=== PATIENT | female | born 1960 | race Caucasian/White ===

== ENCOUNTER 2022-12-04 16:18 | Inpatient (IN) | payer MEDICAID, OTHER ==
[2022-12-04] MEDS ORDERED: methylPREDNISolone Sodium Succinate 125 MG/2 ML SDV IVPUSH ONE (16:34)
[2022-12-04] MEDS ORDERED: Sodium Chloride 0.9% 10 ML Syringe FLUSH PRN (16:34)
[2022-12-04] MEDS: Albuterol/Ipratropium 3.0-0.5 MG/3 ML Neb Soln NEB SCH ×2 (16:42→16:48)
[2022-12-04 17:18] LABS: BASOPHILS ABSOLUTE AUTO 0.04 K/mm3 (0.01-0.08); BASOPHILS PERCENT AUTO 0.3 % (0.1-1.2); EOSINOPHILS ABSOLUTE AUTO 0.04 K/mm3 (0.04-0.36); EOSINOPHILS PERCENT AUTO 0.3 (0.7-5.8); HEMATOCRIT 38.6 % (34.1-44.9); HEMOGLOBIN 11.9 gm/dl (11.2-15.7); IMMATURE GRAN PERCENT AUTO 0.8 % (<=1.0); LYMPHOCYTES ABSOLUTE AUTO 2.05 K/mm3 (1.18-3.74); MEAN CORPUSCULAR HEMOGLOBIN 27.2 pg (25.6-32.2); MEAN CORPUSCULAR HGB CONC 30.8 g/dl (32.2-35.5); MEAN CORPUSCULAR VOLUME 88.1 fl (79.4-94.8); MEAN PLATELET VOLUME 10.8 fl (9.4-12.3); MONOCYTES ABSOLUTE AUTO 1.63 K/mm3 (0.24-0.36); MONOCYTES PERCENT AUTO 12.7 % (4.7-12.5); NEUTROPHILS ABSOLUTE AUTO 8.95 K/mm3 (1.56-6.13); NEUTROPHILS PERCENT AUTO 69.9 % (34.0-71.1); PLATELET COUNT,PLT 353 K/mm3 (182-369); RED BLOOD CELL COUNT 4.38 M/mm3 (3.98-5.22); WHITE BLOOD CELL COUNT,WBC 12.81 K/mm3 (3.98-10.04)
[2022-12-04 17:38] LABS: LACTIC ACID 0.7 mmol/L (0.4-2.0)
[2022-12-04 17:44] LABS: A/G RATIO 0.9 (1-2); ALBUMIN 3.3 g/dl (3.4-5.0); ANION GAP 11.2 (5-15); BILIRUBIN TOTAL 0.9 mg/dL (0.2-1.0); BUN/CREATININE RATIO 13.6 (14-18); C-REACTIVE PROTEIN 2.1 mg/dL (<1.0); CALCIUM 8.5 mg/dL (8.5-10.1); CREATININE 1.1 mg/dL (0.55-1.02); EST CRCL DRUG DOSING (CG) 40.86 mL/min; POTASSIUM,K 3.2 mEq/L (3.5-5.1)
[2022-12-04] MEDS ORDERED: Potassium Chloride 20 MEQ Tab.ER PO ONE (17:58)
[2022-12-04] MEDS ORDERED: Furosemide 40 MG/4 ML VIAL IVPUSH ONE ×2 (17:59→18:38)
[2022-12-04 18:11] LABS: SLIDE REVIEW ABNORMAL SMEAR
[2022-12-04 18:17] LABS: CORONAVIRUS COVID-19 NAA NEGATIVE (NEGATIVE); INFLUENZA A NAA NEGATIVE (NEGATIVE); RESPIRATORY SYNCYTIAL VIR NAA NEGATIVE (NEGATIVE)
[2022-12-04] MEDS: Potassium Chloride 10 MEQ in Premix Bag 1 BAG IV SCH ×2 (18:50→21:42)
[2022-12-04 19:39] LABS: BASE EXCESS ARTERIAL 3.1 (-2-2.0); BICARBONATE,ARTERIAL 28.6 meq/L (22.0-26.0); O2 SATURATION ARTERIAL 82.8 % (96.0-97.0); PCO2 ARTERIAL 50.2 mmHg (35.0-45.0)
[2022-12-04] MEDS ORDERED: Ondansetron 4 MG Tab.DIS PO PRN (19:55)
[2022-12-04] MEDS ORDERED: Albuterol/Ipratropium 3.0-0.5 MG/3 ML Neb Soln NEB PRN (19:55)
[2022-12-04] MEDS ORDERED: Docusate Sodium 100 MG Cap PO PRN (19:55)
[2022-12-04] MEDS ORDERED: Acetaminophen 325 MG Tab PO PRN (19:55)
[2022-12-04] MEDS ORDERED: Polyethylene Glycol 3350 Powder 17 GM Packet PO PRN (19:55)
[2022-12-04] MEDS ORDERED: Ondansetron 4 MG/2 ML SDV IV PRN (19:55)
[2022-12-04] MEDS ORDERED: Temazepam 7.5 MG Cap PO PRN (19:55)
[2022-12-04] MEDS ORDERED: Azithromycin 250 MG Tab PO ONE (20:30)
[2022-12-04] MEDS: Nystatin Topical Powder 15 GM Bottle TOP SCH (21:43)
[2022-12-04] MEDS ORDERED: Sodium Chloride 0.9% 100 ML ONE (21:57)
[2022-12-04] MEDS ORDERED: Sodium Chloride 0.9% 100 ML IV SCH (22:00)
[2022-12-05] MEDS ORDERED: Furosemide 20 MG/2 ML VIAL IVPUSH SCH (06:00)
[2022-12-05] MEDS: predniSONE 20 MG Tab PO SCH (06:10)
[2022-12-05 06:42] LABS: BASOPHILS ABSOLUTE AUTO 0.01 K/mm3 (0.01-0.08); BASOPHILS PERCENT AUTO 0.1 % (0.1-1.2); EOSINOPHILS PERCENT AUTO 0 (0.7-5.8); HEMATOCRIT 37.8 % (34.1-44.9); HEMOGLOBIN 11.6 gm/dl (11.2-15.7); IMMATURE GRAN ABSOLUTE AUTO 0.06 K/mm3 (0.00-0.10); IMMATURE GRAN PERCENT AUTO 0.5 % (<=1.0); LYMPHOCYTES ABSOLUTE AUTO 1.48 K/mm3 (1.18-3.74); LYMPHOCYTES PERCENT AUTO 13.2 % (19.3-51.7); MEAN CORPUSCULAR HEMOGLOBIN 27.1 pg (25.6-32.2); MEAN CORPUSCULAR HGB CONC 30.7 g/dl (32.2-35.5); MEAN CORPUSCULAR VOLUME 88.3 fl (79.4-94.8); MEAN PLATELET VOLUME 11.1 fl (9.4-12.3); MONOCYTES ABSOLUTE AUTO 1.21 K/mm3 (0.24-0.36); MONOCYTES PERCENT AUTO 10.8 % (4.7-12.5); NEUTROPHILS ABSOLUTE AUTO 8.43 K/mm3 (1.56-6.13); NEUTROPHILS PERCENT AUTO 75.4 % (34.0-71.1); PLATELET COUNT,PLT 342 K/mm3 (182-369); RED BLOOD CELL COUNT 4.28 M/mm3 (3.98-5.22); WHITE BLOOD CELL COUNT,WBC 11.19 K/mm3 (3.98-10.04)
[2022-12-05 06:59] LABS: ANION GAP 10.4 (5-15); CALCIUM 8.8 mg/dL (8.5-10.1); EST CRCL DRUG DOSING (CG) 40.82 mL/min; POTASSIUM,K 3.4 mEq/L (3.5-5.1)
[2022-12-05 07:26] LABS: SLIDE REVIEW ABNORMAL SMEAR
[2022-12-05 08:00] LABS: BICARBONATE,ARTERIAL 32.4 meq/L (22.0-26.0); O2 SATURATION ARTERIAL 91.8 % (96.0-97.0); PCO2 ARTERIAL 51.5 mmHg (35.0-45.0)
[2022-12-05] MEDS: Enoxaparin 40 MG/0.4 ML Syringe SUBCUT SCH (08:04)
[2022-12-05] MEDS: Potassium Chloride 20 MEQ Tab.ER PO SCH ×2 (08:04→22:18)
[2022-12-05] MEDS: Azithromycin 250 MG Tab PO SCH (08:04)
[2022-12-05] MEDS: Nystatin Topical Powder 15 GM Bottle TOP SCH ×2 (08:04→22:15)
[2022-12-05] MEDS: Loperamide 2 MG Cap PO PRN ×2 (08:58→15:48)
[2022-12-05] MEDS: Furosemide 40 MG/4 ML VIAL IVPUSH SCH ×2 (10:31→13:38)
[2022-12-05] MEDS: Fluticasone NASAL Spray 16 GM Bottle NASBOTH SCH (10:31)
[2022-12-05] MEDS ORDERED: LORazepam 1 MG Tab PO PRN (12:39)
[2022-12-05] MEDS ORDERED: Albuterol 6.7 GM Inhaler INH PRN (12:39)
[2022-12-05] MEDS: Formoterol/Mometasone 100-5 MCG 8.8 GM Inhaler IH SCH (20:08)
[2022-12-05] MEDS ORDERED: Non-Formulary Medication 1 Each (Diclofenac Sodium 75 MG Tablet.Dr) PO SCH (21:00)
[2022-12-05] MEDS ORDERED: Lisinopril 20 MG Tab PO SCH (21:00)
[2022-12-05] MEDS ORDERED: Gabapentin 600 MG Tab PO SCH (21:00)
[2022-12-05] MEDS: Verapamil 80 MG Tab PO SCH (21:55)
[2022-12-06] MEDS: Formoterol/Mometasone 100-5 MCG 8.8 GM Inhaler IH SCH (06:16)
[2022-12-06] MEDS: Furosemide 40 MG/4 ML VIAL IVPUSH SCH ×3 (06:58→13:30)
[2022-12-06] MEDS: predniSONE 20 MG Tab PO SCH (07:26)
[2022-12-06] MEDS: Loperamide 2 MG Cap PO PRN (07:26)
[2022-12-06] MEDS: Verapamil 80 MG Tab PO SCH (08:07)
[2022-12-06] MEDS: Potassium Chloride 20 MEQ Tab.ER PO SCH (08:08)
[2022-12-06] MEDS: Azithromycin 250 MG Tab PO SCH (08:09)
[2022-12-06] MEDS: Enoxaparin 40 MG/0.4 ML Syringe SUBCUT SCH (08:10)
[2022-12-06] MEDS: Fluticasone NASAL Spray 16 GM Bottle NASBOTH SCH (08:10)
[2022-12-06] MEDS: Nystatin Topical Powder 15 GM Bottle TOP SCH (08:10)
[2022-12-06] MEDS ORDERED: buPROPion 100 MG Tab.SR PO SCH (09:00)
[2022-12-06] MEDS ORDERED: Sertraline 50 MG Tab PO SCH (09:00)
[2022-12-06] MEDS ORDERED: Atenolol 25 MG Tab PO SCH (09:00)
[2022-12-06] MEDS ORDERED: Celecoxib 100 MG Cap PO SCH (09:00)
== END 2022-12-06 13:57 | disposition home or self-care (01) | DRG 189 ==
LOC: JD.ED 16:18 → JD.MS 18:42 → MERGE 18:42
PROVIDERS: ADMIT Hospitalist; ATTEND Hospitalist
DX: J96.21 Acute and chronic respiratory failure with hypoxia (principal); J44.1 Chronic obstructive pulmonary disease with (acute) exacerbation; Z68.42 Body mass index [BMI] 45.0-49.9, adult; I11.0 Hypertensive heart disease with heart failure; F41.9 Anxiety disorder, unspecified; F32.A Depression, unspecified; Z20.822 Contact with and (suspected) exposure to COVID-19; M17.0 Bilateral primary osteoarthritis of knee; E87.6 Hypokalemia; E66.01 Morbid (severe) obesity due to excess calories; I50.9 Heart failure, unspecified; F17.200 Nicotine dependence, unspecified, uncomplicated; Z79.899 Other long term (current) drug therapy; Z98.890 Other specified postprocedural states; Z71.6 Tobacco abuse counseling
CPT/HCPCS: 0241U; 36415; 36600; 71045; 71045-26; 80048; 80053; 82803; 83605; 83735; 83880; 84484; 85025; 85379; 86140; 93005; 93010; 93306; 94640; 94762; 96374; 96375; 97162-GP; 99222; 99232; 99239; 99284; 99285-25; A9270-GY; J1650; J1940; J2930; J3480; J3490; J7512; J7620-GY

== ENCOUNTER 2022-12-10 07:11 | Emergency (ER) | payer MEDICAID ==
[2022-12-10] MEDS ORDERED: methylPREDNISolone Sodium Succinate 125 MG/2 ML SDV IVPUSH ONE (07:46)
[2022-12-10 07:59] LABS: BASOPHILS ABSOLUTE AUTO 0.05 K/mm3 (0.01-0.08); BASOPHILS PERCENT AUTO 0.2 % (0.1-1.2); EOSINOPHILS ABSOLUTE AUTO 0.13 K/mm3 (0.04-0.36); EOSINOPHILS PERCENT AUTO 0.6 (0.7-5.8); HEMOGLOBIN 13.6 gm/dl (11.2-15.7); IMMATURE GRAN ABSOLUTE AUTO 0.08 K/mm3 (0.00-0.10); IMMATURE GRAN PERCENT AUTO 0.3 % (<=1.0); LYMPHOCYTES ABSOLUTE AUTO 1.71 K/mm3 (1.18-3.74); LYMPHOCYTES PERCENT AUTO 7.3 % (19.3-51.7); MEAN CORPUSCULAR HEMOGLOBIN 26.8 pg (25.6-32.2); MEAN CORPUSCULAR HGB CONC 29.6 g/dl (32.2-35.5); MEAN CORPUSCULAR VOLUME 90.6 fl (79.4-94.8); MONOCYTES ABSOLUTE AUTO 2.07 K/mm3 (0.24-0.36); MONOCYTES PERCENT AUTO 8.8 % (4.7-12.5); NEUTROPHILS PERCENT AUTO 82.8 % (34.0-71.1); PLATELET COUNT,PLT 421 K/mm3 (182-369); RED BLOOD CELL COUNT 5.08 M/mm3 (3.98-5.22); WHITE BLOOD CELL COUNT,WBC 23.44 K/mm3 (3.98-10.04)
[2022-12-10] MEDS ORDERED: Sodium Chloride 0.9% 100 ML IV SCH (08:00)
[2022-12-10] MEDS ORDERED: Sodium Chloride 0.9% 10 ML Syringe FLUSH PRN (08:00)
[2022-12-10] MEDS ORDERED: Iopamidol 755 Mg/ML 100 ML Bottle IVPUSH ONE (08:00)
[2022-12-10 08:08] LABS: A/G RATIO 0.9 (1-2); ALBUMIN 3.5 g/dl (3.4-5.0); ANION GAP 10.8 (5-15); BILIRUBIN TOTAL 0.5 mg/dL (0.2-1.0); BUN/CREATININE RATIO 10.8 (14-18); CALCIUM 8.9 mg/dL (8.5-10.1); CREATININE 1.2 mg/dL (0.55-1.02); EST CRCL DRUG DOSING (CG) 34.02 mL/min; MAGNESIUM 1.8 mg/dL (1.8-2.4); PHOSPHORUS 3.4 mg/dL (2.6-4.7); POTASSIUM,K 3.8 mEq/L (3.5-5.1); PROTEIN TOTAL,TP 7.4 g/dl (6.4-8.2)
[2022-12-10 08:51] LABS: SLIDE REVIEW ABNORMAL SMEAR
[2022-12-10 09:18] LABS: LACTIC ACID 1.6 mmol/L (0.4-2.0)
[2022-12-10 09:37] LABS: BASE EXCESS ARTERIAL 1.8 (-2-2.0); BICARBONATE,ARTERIAL 27.8 meq/L (22.0-26.0); O2 SATURATION ARTERIAL 98.1 % (96.0-97.0); PCO2 ARTERIAL 52.9 mmHg (35.0-45.0)
[2022-12-10] MEDS ORDERED: Piperacillin/Tazobactam 4.5 GM in Sodium Chloride 0.9% 100 ML IV ONE (10:06)
[2022-12-10] MEDS ORDERED: Azithromycin 500 MG in Sodium Chloride 0.9% 250 ML IV ONE (10:06)
[2022-12-10] MEDS ORDERED: Sodium Chloride 0.9% 1,000 ML IV ONE (14:22)
== END 2022-12-10 15:51 ==
LOC: JD.ED 07:11
DX: J96.01 Acute respiratory failure with hypoxia (principal); J18.9 Pneumonia, unspecified organism; E78.00 Pure hypercholesterolemia, unspecified; I10 Essential (primary) hypertension; J44.9 Chronic obstructive pulmonary disease, unspecified; M19.90 Unspecified osteoarthritis, unspecified site; Z86.16 Personal history of COVID-19; Z79.51 Long term (current) use of inhaled steroids; Z79.899 Other long term (current) drug therapy
CPT/HCPCS: 36415; 36600; 71045; 71045-26; 71275; 71275-26; 80053; 82803; 83605; 83690; 83735; 83880; 84100; 84484; 85025; 87040; 93005; 93010; 94660; 96361; 96365; 96367; 96375; 99285; 99285-25; J0456; J2543; J2930; J3490; J7030; J7050; Q9967

== ENCOUNTER 2023-11-05 08:42 | Inpatient (IN) | payer MEDICARE, OTHER ==
[2023-11-05 09:20] LABS: BASOPHILS ABSOLUTE AUTO 0.1 K/mm3 (0.0-0.2); BASOPHILS PERCENT AUTO 0.4 % (0.0-1.0); EOSINOPHILS PERCENT AUTO 0.2 % (0.0-6.0); HEMATOCRIT 35.8 % (37.0-47.0); HEMOGLOBIN 11.3 gm/dl (12.0-16.0); IMMATURE GRAN ABSOLUTE AUTO 0.16 K/mm3 (0.00-0.05); LYMPHOCYTES ABSOLUTE AUTO 0.7 K/mm3 (1.0-4.8); LYMPHOCYTES PERCENT AUTO 4.4 % (24.0-44.0); MEAN CORPUSCULAR HEMOGLOBIN 28.2 pg (28.0-32.0); MEAN CORPUSCULAR HGB CONC 31.6 g/dl (32.0-36.0); MEAN CORPUSCULAR VOLUME 89.3 fl (83.0-99.0); MEAN PLATELET VOLUME 11.6 fl (9.4-12.3); MONOCYTES ABSOLUTE AUTO 0.3 K/mm3 (0.0-0.8); MONOCYTES PERCENT AUTO 1.7 % (0.0-8.0); NEUTROPHILS ABSOLUTE AUTO 15.4 K/mm3 (1.8-7.7); NEUTROPHILS PERCENT AUTO 92.3 % (41.0-71.0); NRBC ABSOLUTE 0.05 (0.00-0.02); NRBC PERCENT 0.3 % (0.0-0.2); PLATELET COUNT,PLT 224 K/mm3 (150-400); RED BLOOD CELL COUNT 4.01 M/mm3 (4.10-5.30); WHITE BLOOD CELL COUNT,WBC 16.66 K/mm3 (3.9-11.3)
[2023-11-05 09:43] LABS: ALBUMIN 3.3 g/dl (3.4-5.0); ANION GAP 13.4 (5-15); BILIRUBIN TOTAL 1.1 mg/dL (0.2-1.0); BUN/CREATININE RATIO 12.5 (14-18); CALCIUM 8.6 mg/dL (8.5-10.1); CREATININE 1.6 mg/dL (0.55-1.02); EST CRCL DRUG DOSING (CG) 25.18 mL/min; POTASSIUM,K 3.4 mEq/L (3.5-5.1); PROTEIN TOTAL,TP 6.7 g/dl (6.4-8.2)
[2023-11-05] MEDS: Sodium Chloride 0.9% 1,000 ML IV ONE (10:26)
[2023-11-05 10:32] LABS: LACTIC ACID 3.1 mmol/L (0.4-2.0)
[2023-11-05 10:38] LABS: SLIDE REVIEW ABNORMAL SMEAR
[2023-11-05] MEDS: cefTRIAXone 1 GM in Sodium Chloride 0.9% 100 ML IV ONE (11:01)
[2023-11-05] MEDS: Azithromycin 500 MG in Sodium Chloride 0.9% 250 ML IV ONE (11:53)
[2023-11-05] MEDS: Albuterol/Ipratropium 3.0-0.5 MG/3 ML Neb Soln ONE (12:57)
[2023-11-05] MEDS ORDERED: Morphine 2 MG/ML SYRINGE IVPUSH PRN (13:40)
[2023-11-05] MEDS ORDERED: Acetaminophen/oxyCODONE 325-5 MG Tab PO PRN (13:40)
[2023-11-05] MEDS ORDERED: Ondansetron 4 MG Tab.DIS PO PRN (13:40)
[2023-11-05] MEDS ORDERED: Albuterol 0.083% 2.5 MG/3 ML Neb Soln NEB PRN (13:40)
[2023-11-05] MEDS ORDERED: Sennosides/Docusate Sodium 50-8.6 MG Tab PO PRN (13:40)
[2023-11-05] MEDS: Albuterol/Ipratropium 3.0-0.5 MG/3 ML Neb Soln NEB ONE (14:16)
[2023-11-05] MEDS: Acetaminophen 325 MG Tab PO PRN (14:29)
[2023-11-05] MEDS: Heparin Sodium 5,000 Units/ML Vial SUBCUT SCH (14:30)
[2023-11-05] MEDS: methylPREDNISolone Sodium Succinate 40 MG/1 ML SDV IVPUSH SCH (14:30)
[2023-11-05] MEDS ORDERED: Benzonatate 100 MG Cap PO PRN (14:44)
[2023-11-05 15:03] LABS: MAGNESIUM 1.3 mg/dL (1.8-2.4); PHOSPHORUS 2.3 mg/dL (2.6-4.7)
[2023-11-05 15:10] LABS: TSH 0.982 uIU/mL (0.358-3.74)
[2023-11-05] MEDS: Albuterol/Ipratropium 3.0-0.5 MG/3 ML Neb Soln NEB SCH (15:46)
[2023-11-05 17:13] LABS: LACTIC ACID 5.2 mmol/L (0.4-2.0)
[2023-11-05] MEDS: Zolpidem 5 MG Tab PO PRN (21:10)
[2023-11-05] MEDS: Loperamide 2 MG Cap PO PRN (21:10)
[2023-11-05] MEDS: guaiFENesin 600 MG Tab.ER PO SCH (21:10)
[2023-11-05] MEDS: Furosemide 20 MG/2 ML VIAL IVPUSH SCH (22:51)
[2023-11-06 05:06] LABS: HEMATOCRIT 29.9 % (37.0-47.0); HEMOGLOBIN 9.3 gm/dl (12.0-16.0); MEAN CORPUSCULAR HEMOGLOBIN 27.1 pg (28.0-32.0); MEAN CORPUSCULAR HGB CONC 31.1 g/dl (32.0-36.0); MEAN CORPUSCULAR VOLUME 87.2 fl (83.0-99.0); PLATELET COUNT,PLT 180 K/mm3 (150-400); RED BLOOD CELL COUNT 3.43 M/mm3 (4.10-5.30); WHITE BLOOD CELL COUNT,WBC 31.88 K/mm3 (3.9-11.3)
[2023-11-06 05:43] LABS: ANION GAP 13.5 (5-15); BUN/CREATININE RATIO 17.1 (14-18); CALCIUM 8.8 mg/dL (8.5-10.1); CREATININE 1.4 mg/dL (0.55-1.02); EST CRCL DRUG DOSING (CG) 28.78 mL/min; POTASSIUM,K 3.5 mEq/L (3.5-5.1)
[2023-11-06] MEDS: Meropenem 500 MG in Sodium Chloride 0.9% 100 ML IV SCH (09:46)
[2023-11-06] MEDS ORDERED: cefTRIAXone 1 GM in Sodium Chloride 0.9% 100 ML IV SCH (11:00)
[2023-11-06] MEDS ORDERED: Azithromycin 500 MG in Sodium Chloride 0.9% 250 ML IV SCH (12:00)
[2023-11-06] MEDS: Phosphorus #1 250 MG Tab PO SCH (17:14)
[2023-11-06] MEDS: Magnesium Oxide 400 MG Tab PO SCH (20:28)
[2023-11-06] MEDS: LORazepam 1 MG Tab PO SCH (20:30)
[2023-11-07 05:47] LABS: HEMATOCRIT 29.8 % (37.0-47.0); HEMOGLOBIN 9.6 gm/dl (12.0-16.0); MEAN CORPUSCULAR HEMOGLOBIN 27.6 pg (28.0-32.0); MEAN CORPUSCULAR HGB CONC 32.2 g/dl (32.0-36.0); MEAN CORPUSCULAR VOLUME 85.6 fl (83.0-99.0); PLATELET COUNT,PLT 197 K/mm3 (150-400); RED BLOOD CELL COUNT 3.48 M/mm3 (4.10-5.30); WHITE BLOOD CELL COUNT,WBC 23.19 K/mm3 (3.9-11.3)
[2023-11-07 05:49] LABS: ANION GAP 12.3 (5-15); BUN/CREATININE RATIO 22.1 (14-18); CALCIUM 8.7 mg/dL (8.5-10.1); CREATININE 1.4 mg/dL (0.55-1.02); EST CRCL DRUG DOSING (CG) 28.78 mL/min; POTASSIUM,K 3.3 mEq/L (3.5-5.1)
[2023-11-07 10:55] LABS: MAGNESIUM 1.6 mg/dL (1.8-2.4); PHOSPHORUS 3.7 mg/dL (2.6-4.7)
[2023-11-07 11:28] LABS: LACTIC ACID 0.7 mmol/L (0.4-2.0)
[2023-11-07] MEDS: Sertraline 50 MG Tab PO SCH (13:22)
[2023-11-07] MEDS: buPROPion 100 MG Tab.SR PO SCH (13:23)
[2023-11-07] MEDS: Atenolol 25 MG Tab PO SCH (13:23)
[2023-11-07] MEDS: Potassium Chloride 20 MEQ Tab.ER PO SCH (13:23)
[2023-11-07] MEDS: RAMIPRIL 10 MG PO SCH (14:24)
[2023-11-07] MEDS: Verapamil 80 MG Tab PO SCH (20:25)
[2023-11-07] MEDS: Rosuvastatin 10 MG Tab PO SCH (20:26)
[2023-11-07] MEDS: DICLOFENAC 75 MG PO SCH (20:27)
[2023-11-08 05:37] LABS: ANION GAP 14.3 (5-15); BUN/CREATININE RATIO 27.9 (14-18); CALCIUM 8.6 mg/dL (8.5-10.1); CREATININE 1.4 mg/dL (0.55-1.02); EST CRCL DRUG DOSING (CG) 28.78 mL/min; POTASSIUM,K 3.3 mEq/L (3.5-5.1)
[2023-11-08 05:46] LABS: HEMATOCRIT 31.4 % (37.0-47.0); HEMOGLOBIN 9.9 gm/dl (12.0-16.0); MEAN CORPUSCULAR HEMOGLOBIN 27.3 pg (28.0-32.0); MEAN CORPUSCULAR HGB CONC 31.5 g/dl (32.0-36.0); MEAN CORPUSCULAR VOLUME 86.7 fl (83.0-99.0); NRBC ABSOLUTE 0.02 (0.00-0.02); NRBC PERCENT 0.1 % (0.0-0.2); PLATELET COUNT,PLT 227 K/mm3 (150-400); RED BLOOD CELL COUNT 3.62 M/mm3 (4.10-5.30); WHITE BLOOD CELL COUNT,WBC 14.83 K/mm3 (3.9-11.3)
[2023-11-08] MEDS: methylPREDNISolone Sodium Succinate 40 MG/1 ML SDV IVPUSH SCH (17:33)
[2023-11-08] MEDS: LORazepam 1 MG Tab PO SCH (21:08)
[2023-11-09 05:39] LABS: HEMATOCRIT 32.6 % (37.0-47.0); HEMOGLOBIN 10.2 gm/dl (12.0-16.0); MEAN CORPUSCULAR HEMOGLOBIN 27.1 pg (28.0-32.0); MEAN CORPUSCULAR HGB CONC 31.3 g/dl (32.0-36.0); MEAN CORPUSCULAR VOLUME 86.5 fl (83.0-99.0); MEAN PLATELET VOLUME 13.4 fl (9.4-12.3); NRBC ABSOLUTE 0.02 (0.00-0.02); NRBC PERCENT 0.2 % (0.0-0.2); PLATELET COUNT,PLT 257 K/mm3 (150-400); RED BLOOD CELL COUNT 3.77 M/mm3 (4.10-5.30); WHITE BLOOD CELL COUNT,WBC 13.01 K/mm3 (3.9-11.3)
[2023-11-09 05:55] LABS: ANION GAP 12.4 (5-15); BUN/CREATININE RATIO 26.9 (14-18); CALCIUM 8.6 mg/dL (8.5-10.1); CREATININE 1.3 mg/dL (0.55-1.02); EST CRCL DRUG DOSING (CG) 30.99 mL/min; POTASSIUM,K 3.4 mEq/L (3.5-5.1)
[2023-11-09] MEDS ORDERED: Furosemide 20 MG Tab PO SCH (09:00)
[2023-11-09] MEDS: methylPREDNISolone Sodium Succinate 40 MG/1 ML SDV IVPUSH SCH (09:05)
[2023-11-09] MEDS: Furosemide 20 MG Tab PO SCH (09:06)
[2023-11-09] MEDS: Loperamide 2 MG Cap PO PRN (11:41)
[2023-11-09] MEDS ORDERED: diphenhydrAMINE/Zinc Acetate 2% Crm 28.4 GM Tube TOP PRN (14:32)
[2023-11-09] MEDS: hydrOXYzine HCl 10 MG Tab PO PRN (14:45)
[2023-11-09] MEDS: Meropenem 1 GM in Sodium Chloride 0.9% 100 ML IV SCH (23:13)
[2023-11-10 04:53] LABS: HEMATOCRIT 33.3 % (37.0-47.0); HEMOGLOBIN 10.5 gm/dl (12.0-16.0); MEAN CORPUSCULAR HEMOGLOBIN 26.9 pg (28.0-32.0); MEAN CORPUSCULAR HGB CONC 31.5 g/dl (32.0-36.0); MEAN CORPUSCULAR VOLUME 85.2 fl (83.0-99.0); MEAN PLATELET VOLUME 12.7 fl (9.4-12.3); NRBC ABSOLUTE 0.02 (0.00-0.02); NRBC PERCENT 0.1 % (0.0-0.2); PLATELET COUNT,PLT 253 K/mm3 (150-400); RED BLOOD CELL COUNT 3.91 M/mm3 (4.10-5.30); WHITE BLOOD CELL COUNT,WBC 18.43 K/mm3 (3.9-11.3)
[2023-11-10 05:06] LABS: ANION GAP 13.5 (5-15); CALCIUM 8.2 mg/dL (8.5-10.1); CREATININE 1.4 mg/dL (0.55-1.02); EST CRCL DRUG DOSING (CG) 28.78 mL/min; MAGNESIUM 2.2 mg/dL (1.8-2.4); POTASSIUM,K 3.5 mEq/L (3.5-5.1)
[2023-11-10] MEDS: predniSONE 20 MG Tab PO SCH (06:15)
[2023-11-10] MEDS: Furosemide 40 MG Tab PO SCH (08:51)
== END 2023-11-10 11:55 | disposition home or self-care (01) | DRG 177 ==
LOC: JD.ED 08:42 → JD.MS 12:02
PROVIDERS: ADMIT Internal Medicine; ATTEND Internal Medicine
DX: J18.9 Pneumonia, unspecified organism (principal); R09.02 Hypoxemia; I50.9 Heart failure, unspecified; I10 Essential (primary) hypertension; J44.9 Chronic obstructive pulmonary disease, unspecified; J15.5 Pneumonia due to Escherichia coli; I50.43 Acute on chronic combined systolic (congestive) and diastolic (congestive) heart failure; J96.21 Acute and chronic respiratory failure with hypoxia; J44.0 Chronic obstructive pulmonary disease with (acute) lower respiratory infection; N17.9 Acute kidney failure, unspecified; K92.1 Melena; J44.1 Chronic obstructive pulmonary disease with (acute) exacerbation; Z16.29 Resistance to other single specified antibiotic; R78.81 Bacteremia; H54.7 Unspecified visual loss; E78.00 Pure hypercholesterolemia, unspecified; I11.0 Hypertensive heart disease with heart failure; M19.90 Unspecified osteoarthritis, unspecified site; F41.9 Anxiety disorder, unspecified; F32.A Depression, unspecified; E87.6 Hypokalemia; Z86.16 Personal history of COVID-19; Z79.899 Other long term (current) drug therapy; Z99.81 Dependence on supplemental oxygen; Z87.891 Personal history of nicotine dependence; Z98.891 History of uterine scar from previous surgery
CPT/HCPCS: 36415; 71045; 80053; 83605; 83880; 84484; 85025; 87040 ×2; 87077; 87154; 87186; 93005; 96361; 96365; 96368; 99285; J0456; J0696; J3490; J7030; J7050; 80048; 82270; 82272; 83735; 84100; 84443; 85018; 85027; 93010; 93306; 94640; 94667; 94668; 94760; 94761; A9270-GY; J1644; J1940; J2185; J2919; J2920; J7512; J7620-GY

== ENCOUNTER 2024-01-22 15:53 | Inpatient (IN) | payer MEDICARE, OTHER ==
[2024-01-22 16:11] LABS: BASE EXCESS ARTERIAL 5.3 (-2-2.0); BICARBONATE,ARTERIAL 30.8 meq/L (22.0-26.0); O2 SATURATION ARTERIAL 90.3 % (96.0-97.0)
[2024-01-22 16:32] LABS: BASOPHILS ABSOLUTE AUTO 0.1 K/mm3 (0.0-0.2); BASOPHILS PERCENT AUTO 0.8 % (0.0-1.0); HEMATOCRIT 32.7 % (37.0-47.0); HEMOGLOBIN 9.7 gm/dl (12.0-16.0); IMMATURE GRAN ABSOLUTE AUTO 0.14 K/mm3 (0.00-0.05); IMMATURE GRAN PERCENT AUTO 1.4 % (0.0-0.4); LYMPHOCYTES PERCENT AUTO 30.8 % (24.0-44.0); MEAN CORPUSCULAR HEMOGLOBIN 26.9 pg (28.0-32.0); MEAN CORPUSCULAR HGB CONC 29.7 g/dl (32.0-36.0); MEAN CORPUSCULAR VOLUME 90.8 fl (83.0-99.0); MEAN PLATELET VOLUME 11.5 fl (9.4-12.3); MONOCYTES ABSOLUTE AUTO 1.4 K/mm3 (0.0-0.8); MONOCYTES PERCENT AUTO 13.8 % (0.0-8.0); NEUTROPHILS ABSOLUTE AUTO 5.3 K/mm3 (1.8-7.7); NEUTROPHILS PERCENT AUTO 53.2 % (41.0-71.0); PLATELET COUNT,PLT 318 K/mm3 (150-400); WHITE BLOOD CELL COUNT,WBC 9.88 K/mm3 (3.9-11.3)
[2024-01-22] MEDS: Albuterol 0.5% 2.5 MG/0.5 ML Neb Soln NEB ONE (16:33)
[2024-01-22] MEDS: Albuterol/Ipratropium 3.0-0.5 MG/3 ML Neb Soln NEB ONE (16:43)
[2024-01-22 16:59] LABS: A/G RATIO 0.8 (1-2); ALBUMIN 2.8 g/dl (3.4-5.0); ANION GAP 10.6 (5-15); BILIRUBIN TOTAL 0.4 mg/dL (0.2-1.0); C-REACTIVE PROTEIN 2.44 mg/dL (<0.30); CALCIUM 8.6 mg/dL (8.5-10.1); CREATININE 1.4 mg/dL (0.55-1.02); EST CRCL DRUG DOSING (CG) 28.78 mL/min; MAGNESIUM 1.8 mg/dL (1.8-2.4); POTASSIUM,K 3.6 mEq/L (3.5-5.1); PROTEIN TOTAL,TP 6.4 g/dl (6.4-8.2)
[2024-01-22] MEDS: Sodium Chloride 0.9% 1,000 ML IV SCH (17:14)
[2024-01-22] MEDS: methylPREDNISolone Sodium Succinate 125 MG/2 ML SDV IVPUSH ONE (17:15)
[2024-01-22] MEDS: Magnesium Sulfate/Water 4 GM in Premix Bag 1 BAG IV ONE (17:15)
[2024-01-22 19:27] LABS: CORONAVIRUS COVID-19 NAA NEGATIVE (NEGATIVE); INFLUENZA A NAA NEGATIVE (NEGATIVE); RESPIRATORY SYNCYTIAL VIR NAA NEGATIVE (NEGATIVE)
[2024-01-22] MEDS: Furosemide 40 MG/4 ML VIAL IVPUSH ONE (21:24)
[2024-01-22] MEDS: Albuterol/Ipratropium 3.0-0.5 MG/3 ML Neb Soln NEB SCH (22:38)
[2024-01-22 22:44] LABS: APPEARANCE,URINE CLEAR (Clear); BILIRUBIN,URINE NEGATIVE (Negative); COLOR,URINE YELLOW (Yellow); GLUCOSE,URINE NEGATIVE (Negative); KETONES,URINE NEGATIVE (Negative); LEUKOCYTE ESTERASE,URINE NEGATIVE (Negative); NITRITE,URINE NEGATIVE (Negative); OCCULT BLOOD,URINE NEGATIVE (Negative); PROTEIN,URINE NEGATIVE (Negative); UROBILINOGEN,URINE 0.2 (0.2-1.0)
[2024-01-23] MEDS ORDERED: Ondansetron 4 MG/2 ML SDV IV PRN (05:52)
[2024-01-23] MEDS: Doxycycline 100 MG in Sodium Chloride 0.9% 100 ML IV SCH (07:03)
[2024-01-23] MEDS: Loperamide 2 MG Cap PO SCH (08:17)
[2024-01-23] MEDS: Sertraline 50 MG Tab PO SCH (08:17)
[2024-01-23] MEDS: methylPREDNISolone Sodium Succinate 125 MG/2 ML SDV IVPUSH SCH (08:17)
[2024-01-23] MEDS: Enoxaparin 40 MG/0.4 ML Syringe SUBCUT SCH (08:17)
[2024-01-23] MEDS: buPROPion 100 MG Tab.SR PO SCH (08:17)
[2024-01-23] MEDS: Atenolol 25 MG Tab PO SCH (08:18)
[2024-01-23] MEDS: Verapamil 80 MG Tab PO SCH (08:18)
[2024-01-23] MEDS: Budesonide 0.5 MG/2 ML Neb Susp INH SCH (14:07)
[2024-01-23] MEDS: Potassium Chloride 20 MEQ Tab.ER PO ONE (14:40)
[2024-01-23] MEDS: Acetaminophen 325 MG Tab PO PRN (19:35)
[2024-01-23] MEDS: Gabapentin 300 MG Cap PO SCH (21:03)
[2024-01-23] MEDS: Sulindac 200 MG Tab PO SCH (21:03)
[2024-01-23] MEDS: Rosuvastatin 10 MG Tab PO SCH (21:04)
[2024-01-23] MEDS: LORazepam 1 MG Tab PO PRN (22:23)
[2024-01-23] MEDS ORDERED: Loperamide 2 MG Cap PO PRN (22:27)
[2024-01-24 05:39] LABS: HEMATOCRIT 30.4 % (37.0-47.0); HEMOGLOBIN 9.2 gm/dl (12.0-16.0); MEAN CORPUSCULAR HEMOGLOBIN 26.7 pg (28.0-32.0); MEAN CORPUSCULAR HGB CONC 30.3 g/dl (32.0-36.0); MEAN CORPUSCULAR VOLUME 88.1 fl (83.0-99.0); MEAN PLATELET VOLUME 10.9 fl (9.4-12.3); NRBC ABSOLUTE 0.03 (0.00-0.02); NRBC PERCENT 0.2 % (0.0-0.2); PLATELET COUNT,PLT 335 K/mm3 (150-400); RED BLOOD CELL COUNT 3.45 M/mm3 (4.10-5.30); WHITE BLOOD CELL COUNT,WBC 15.62 K/mm3 (3.9-11.3)
[2024-01-24 06:07] LABS: ALBUMIN 3.2 g/dl (3.4-5.0); ANION GAP 11.3 (5-15); BILIRUBIN TOTAL 0.3 mg/dL (0.2-1.0); BUN/CREATININE RATIO 21.4 (14-18); CALCIUM 9.2 mg/dL (8.5-10.1); CREATININE 1.4 mg/dL (0.55-1.02); EST CRCL DRUG DOSING (CG) 28.78 mL/min; MAGNESIUM 2.3 mg/dL (1.8-2.4); PHOSPHORUS 3.4 mg/dL (2.6-4.7); POTASSIUM,K 4.3 mEq/L (3.5-5.1); PROTEIN TOTAL,TP 6.4 g/dl (6.4-8.2)
[2024-01-24] MEDS: Loperamide 2 MG Cap PO PRN (07:39)
[2024-01-24] MEDS ORDERED: Melatonin 3 MG Tab PO PRN (08:24)
[2024-01-24] MEDS: Furosemide 40 MG/4 ML VIAL IVPUSH ONE (08:44)
[2024-01-24] MEDS ORDERED: Sennosides/Docusate Sodium 50-8.6 MG Tab PO PRN (08:49)
[2024-01-24] MEDS: Famotidine 20 MG Tab PO SCH (22:04)
[2024-01-25 05:33] LABS: BASOPHILS PERCENT AUTO 0.2 % (0.0-1.0); HEMATOCRIT 31.6 % (37.0-47.0); HEMOGLOBIN 9.7 gm/dl (12.0-16.0); IMMATURE GRAN ABSOLUTE AUTO 0.28 K/mm3 (0.00-0.05); IMMATURE GRAN PERCENT AUTO 2.1 % (0.0-0.4); LYMPHOCYTES ABSOLUTE AUTO 2.9 K/mm3 (1.0-4.8); LYMPHOCYTES PERCENT AUTO 21.6 % (24.0-44.0); MEAN CORPUSCULAR HEMOGLOBIN 26.9 pg (28.0-32.0); MEAN CORPUSCULAR HGB CONC 30.7 g/dl (32.0-36.0); MEAN CORPUSCULAR VOLUME 87.5 fl (83.0-99.0); MEAN PLATELET VOLUME 11.5 fl (9.4-12.3); MONOCYTES ABSOLUTE AUTO 1.8 K/mm3 (0.0-0.8); MONOCYTES PERCENT AUTO 13.3 % (0.0-8.0); NEUTROPHILS ABSOLUTE AUTO 8.5 K/mm3 (1.8-7.7); NEUTROPHILS PERCENT AUTO 62.8 % (41.0-71.0); NRBC ABSOLUTE 0.03 (0.00-0.02); NRBC PERCENT 0.2 % (0.0-0.2); PLATELET COUNT,PLT 353 K/mm3 (150-400); RED BLOOD CELL COUNT 3.61 M/mm3 (4.10-5.30); WHITE BLOOD CELL COUNT,WBC 13.53 K/mm3 (3.9-11.3)
[2024-01-25 05:52] LABS: ANION GAP 10.1 (5-15); BUN/CREATININE RATIO 23.3 (14-18); C-REACTIVE PROTEIN 0.36 mg/dL (<0.30); CALCIUM 8.8 mg/dL (8.5-10.1); CREATININE 1.5 mg/dL (0.55-1.02); EST CRCL DRUG DOSING (CG) 26.86 mL/min; POTASSIUM,K 4.1 mEq/L (3.5-5.1)
[2024-01-25 06:23] LABS: SLIDE REVIEW ABNORMAL SMEAR
[2024-01-25] MEDS: methylPREDNISolone Sodium Succinate 40 MG/1 ML SDV IVPUSH SCH (08:20)
[2024-01-25] MEDS: Furosemide 40 MG/4 ML VIAL IVPUSH ONE (11:16)
[2024-01-25] MEDS ORDERED: Labetalol 100 MG/20 ML MDV IVPUSH PRN (15:31)
[2024-01-25 17:58] LABS: IRON,FE 22 ug/dL (50-170)
[2024-01-25 18:16] LABS: PERCENT FE SATURATION 6 % (20-55)
[2024-01-25 18:27] LABS: TOTAL IRON BINDING CAPACITY 368 ug/dL (100-400); TRANSFERRIN 294 mg/dL (202-364)
[2024-01-25] MEDS: Nystatin Topical Powder 15 GM Bottle TOP SCH (21:01)
[2024-01-26 04:57] LABS: HEMATOCRIT 34.6 % (37.0-47.0); HEMOGLOBIN 10.6 gm/dl (12.0-16.0); MEAN CORPUSCULAR HEMOGLOBIN 26.8 pg (28.0-32.0); MEAN CORPUSCULAR HGB CONC 30.6 g/dl (32.0-36.0); MEAN CORPUSCULAR VOLUME 87.6 fl (83.0-99.0); MEAN PLATELET VOLUME 11.1 fl (9.4-12.3); NRBC ABSOLUTE 0.02 (0.00-0.02); NRBC PERCENT 0.2 % (0.0-0.2); PLATELET COUNT,PLT 362 K/mm3 (150-400); RED BLOOD CELL COUNT 3.95 M/mm3 (4.10-5.30); WHITE BLOOD CELL COUNT,WBC 11.27 K/mm3 (3.9-11.3)
[2024-01-26 05:12] LABS: CALCIUM 8.7 mg/dL (8.5-10.1); CREATININE 1.5 mg/dL (0.55-1.02); EST CRCL DRUG DOSING (CG) 26.86 mL/min
[2024-01-27] MEDS: hydrALAZINE 20 MG/ML SDV IVPUSH PRN (04:12)
[2024-01-27] MEDS: Furosemide 40 MG Tab PO SCH (08:14)
[2024-01-27 08:21] LABS: ANION GAP 13.3 (5-15); BUN/CREATININE RATIO 28.3 (14-18); CALCIUM 8.5 mg/dL (8.5-10.1); CREATININE 1.2 mg/dL (0.55-1.02); EST CRCL DRUG DOSING (CG) 33.57 mL/min; POTASSIUM,K 4.3 mEq/L (3.5-5.1)
[2024-01-27 08:31] LABS: BASOPHILS PERCENT AUTO 0.3 % (0.0-1.0); HEMATOCRIT 33.8 % (37.0-47.0); HEMOGLOBIN 10.3 gm/dl (12.0-16.0); IMMATURE GRAN ABSOLUTE AUTO 0.51 K/mm3 (0.00-0.05); IMMATURE GRAN PERCENT AUTO 3.8 % (0.0-0.4); LYMPHOCYTES ABSOLUTE AUTO 2.1 K/mm3 (1.0-4.8); LYMPHOCYTES PERCENT AUTO 15.4 % (24.0-44.0); MEAN CORPUSCULAR HEMOGLOBIN 26.7 pg (28.0-32.0); MEAN CORPUSCULAR HGB CONC 30.5 g/dl (32.0-36.0); MEAN CORPUSCULAR VOLUME 87.6 fl (83.0-99.0); MEAN PLATELET VOLUME 11.4 fl (9.4-12.3); MONOCYTES ABSOLUTE AUTO 1.1 K/mm3 (0.0-0.8); MONOCYTES PERCENT AUTO 8.5 % (0.0-8.0); NEUTROPHILS ABSOLUTE AUTO 9.6 K/mm3 (1.8-7.7); NRBC ABSOLUTE 0.03 (0.00-0.02); NRBC PERCENT 0.2 % (0.0-0.2); PLATELET COUNT,PLT 342 K/mm3 (150-400); RED BLOOD CELL COUNT 3.86 M/mm3 (4.10-5.30); WHITE BLOOD CELL COUNT,WBC 13.31 K/mm3 (3.9-11.3)
[2024-01-27 10:16] LABS: SLIDE REVIEW ABNORMAL SMEAR
[2024-01-27] MEDS: Furosemide 40 MG Tab PO ONE (17:57)
[2024-01-27] MEDS: Lisinopril 20 MG Tab PO SCH (20:40)
[2024-01-28 04:52] LABS: BASOPHILS ABSOLUTE AUTO 0.1 K/mm3 (0.0-0.2); BASOPHILS PERCENT AUTO 0.4 % (0.0-1.0); HEMATOCRIT 34.2 % (37.0-47.0); HEMOGLOBIN 10.6 gm/dl (12.0-16.0); IMMATURE GRAN ABSOLUTE AUTO 0.51 K/mm3 (0.00-0.05); IMMATURE GRAN PERCENT AUTO 3.8 % (0.0-0.4); LYMPHOCYTES ABSOLUTE AUTO 1.8 K/mm3 (1.0-4.8); LYMPHOCYTES PERCENT AUTO 13.5 % (24.0-44.0); MEAN CORPUSCULAR HEMOGLOBIN 26.8 pg (28.0-32.0); MEAN CORPUSCULAR VOLUME 86.6 fl (83.0-99.0); MEAN PLATELET VOLUME 11.2 fl (9.4-12.3); MONOCYTES ABSOLUTE AUTO 1.1 K/mm3 (0.0-0.8); MONOCYTES PERCENT AUTO 8.1 % (0.0-8.0); NEUTROPHILS ABSOLUTE AUTO 9.9 K/mm3 (1.8-7.7); NEUTROPHILS PERCENT AUTO 74.2 % (41.0-71.0); NRBC ABSOLUTE 0.04 (0.00-0.02); NRBC PERCENT 0.3 % (0.0-0.2); PLATELET COUNT,PLT 340 K/mm3 (150-400); RED BLOOD CELL COUNT 3.95 M/mm3 (4.10-5.30); WHITE BLOOD CELL COUNT,WBC 13.36 K/mm3 (3.9-11.3)
[2024-01-28 05:38] LABS: BUN/CREATININE RATIO 26.7 (14-18); CALCIUM 8.6 mg/dL (8.5-10.1); CREATININE 1.5 mg/dL (0.55-1.02); EST CRCL DRUG DOSING (CG) 26.86 mL/min
[2024-01-28 06:06] LABS: SLIDE REVIEW ABNORMAL SMEAR
== END 2024-01-28 14:40 | disposition home or self-care (01) | DRG 291 ==
LOC: JD.ED 15:53 → JD.MS 20:42
PROVIDERS: ADMIT Internal Medicine; ATTEND Internal Medicine
PROC: 5A0955A Assistance with Respiratory Ventilation, Greater than 96 Consecutive Hours, High Flow/Velocity Cannula (ICD-10-PCS; principal; 2024-01-22)
PROC: 4A033R1 Measurement of Arterial Saturation, Peripheral, Percutaneous Approach (ICD-10-PCS; 2024-01-22)
DX: I13.0 Hypertensive heart and chronic kidney disease with heart failure and stage 1 through stage 4 chronic kidney disease, or unspecified chronic kidney disease (principal); I11.0 Hypertensive heart disease with heart failure; I50.43 Acute on chronic combined systolic (congestive) and diastolic (congestive) heart failure; E66.9 Obesity, unspecified; Z68.44 Body mass index [BMI] 60.0-69.9, adult; J96.21 Acute and chronic respiratory failure with hypoxia; J96.22 Acute and chronic respiratory failure with hypercapnia; J44.1 Chronic obstructive pulmonary disease with (acute) exacerbation; Z68.43 Body mass index [BMI] 50.0-59.9, adult; N17.9 Acute kidney failure, unspecified; H54.7 Unspecified visual loss; E66.01 Morbid (severe) obesity due to excess calories; E78.00 Pure hypercholesterolemia, unspecified; K52.9 Noninfective gastroenteritis and colitis, unspecified; M19.90 Unspecified osteoarthritis, unspecified site; F41.9 Anxiety disorder, unspecified; F32.A Depression, unspecified; G43.909 Migraine, unspecified, not intractable, without status migrainosus; D50.8 Other iron deficiency anemias; D63.1 Anemia in chronic kidney disease; R73.03 Prediabetes; N18.32 Chronic kidney disease, stage 3b; I27.20 Pulmonary hypertension, unspecified; Z87.891 Personal history of nicotine dependence; Z99.81 Dependence on supplemental oxygen; Z79.51 Long term (current) use of inhaled steroids; Z79.899 Other long term (current) drug therapy; Z98.891 History of uterine scar from previous surgery; Z87.01 Personal history of pneumonia (recurrent)
CPT/HCPCS: 0241U; 36415; 36600; 71045; 80048; 80053; 81003; 82803; 83036; 83540; 83605; 83735; 83880; 84100; 84466; 84484; 85025; 85027; 85379; 86140; 93005; 94640; 94762; 96365; 96366; 96375; 97161; 99285; 93010; 99232; 99233; 99238; A9270-GY; J0360; J1650; J1940; J2919; J3475; J3490; J7030; J7620-GY

== ENCOUNTER 2024-04-27 09:59 | Inpatient (IN) | payer MEDICARE, OTHER ==
[2024-04-27] MEDS ORDERED: Sodium Chloride 0.9% 10 ML Syringe FLUSH PRN (10:12)
[2024-04-27] MEDS: Albuterol/Ipratropium 3.0-0.5 MG/3 ML Neb Soln NEB ONE ×2 (10:40→12:07)
[2024-04-27 10:49] LABS: BASE EXCESS ARTERIAL 1.1 (-2-2.0); BICARBONATE,ARTERIAL 26.8 meq/L (22.0-26.0); O2 SATURATION ARTERIAL 87.5 % (96.0-97.0); PCO2 ARTERIAL 51.7 mmHg (35.0-45.0)
[2024-04-27] MEDS: methylPREDNISolone Sodium Succinate 125 MG/2 ML SDV IVPUSH ONE (10:50)
[2024-04-27 10:56] LABS: BASOPHILS PERCENT AUTO 0.4 % (0.0-1.0); EOSINOPHILS PERCENT AUTO 0.2 % (0.0-6.0); HEMATOCRIT 30.2 % (37.0-47.0); HEMOGLOBIN 9.5 gm/dl (12.0-16.0); IMMATURE GRAN ABSOLUTE AUTO 0.11 K/mm3 (0.00-0.05); IMMATURE GRAN PERCENT AUTO 1.2 % (0.0-0.4); LYMPHOCYTES ABSOLUTE AUTO 1.6 K/mm3 (1.0-4.8); LYMPHOCYTES PERCENT AUTO 17.4 % (24.0-44.0); MEAN CORPUSCULAR HEMOGLOBIN 28.5 pg (28.0-32.0); MEAN CORPUSCULAR HGB CONC 31.5 g/dl (32.0-36.0); MEAN CORPUSCULAR VOLUME 90.7 fl (83.0-99.0); MEAN PLATELET VOLUME 11.8 fl (9.4-12.3); MONOCYTES ABSOLUTE AUTO 1.7 K/mm3 (0.0-0.8); MONOCYTES PERCENT AUTO 18.4 % (0.0-8.0); NEUTROPHILS ABSOLUTE AUTO 5.8 K/mm3 (1.8-7.7); NEUTROPHILS PERCENT AUTO 62.4 % (41.0-71.0); NRBC ABSOLUTE 0.02 (0.00-0.02); NRBC PERCENT 0.2 % (0.0-0.2); PLATELET COUNT,PLT 201 K/mm3 (150-400); RED BLOOD CELL COUNT 3.33 M/mm3 (4.10-5.30); WHITE BLOOD CELL COUNT,WBC 9.31 K/mm3 (3.9-11.3)
[2024-04-27 11:25] LABS: A/G RATIO 0.9 (1-2); ALBUMIN 3.2 g/dl (3.4-5.0); BILIRUBIN TOTAL 1.1 mg/dL (0.2-1.0); BUN/CREATININE RATIO 10.9 (14-18); CALCIUM 8.6 mg/dL (8.5-10.1); CREATININE 1.1 mg/dL (0.55-1.02); EST CRCL DRUG DOSING (CG) 36.62 mL/min; MAGNESIUM 1.8 mg/dL (1.8-2.4); PROTEIN TOTAL,TP 6.6 g/dl (6.4-8.2)
[2024-04-27] MEDS ORDERED: Loperamide 2 MG Cap PO PRN ×2 (15:00→15:09)
[2024-04-27] MEDS: REMDESIVIR 200 MG in Sodium Chloride 0.9% 250 ML IV ONE (15:25)
[2024-04-27] MEDS ORDERED: Albuterol 0.083% 2.5 MG/3 ML Neb Soln NEB PRN (15:37)
[2024-04-27] MEDS ORDERED: Morphine 2 MG/ML SYRINGE IVPUSH PRN (15:37)
[2024-04-27] MEDS ORDERED: Docusate Sodium 100 MG Cap PO PRN (15:37)
[2024-04-27] MEDS ORDERED: oxyCODONE 5 MG Tab PO PRN (15:37)
[2024-04-27] MEDS ORDERED: Ondansetron 4 MG/2 ML SDV IV PRN (15:37)
[2024-04-27] MEDS ORDERED: Polyethylene Glycol 3350 Powder 17 GM Packet PO PRN (15:37)
[2024-04-27] MEDS: Albuterol/Ipratropium 3.0-0.5 MG/3 ML Neb Soln NEB SCH (16:05)
[2024-04-27] MEDS: Budesonide 0.5 MG/2 ML Neb Susp SCH (16:22)
[2024-04-27] MEDS: Enoxaparin 40 MG/0.4 ML Syringe SUBCUT SCH (16:55)
[2024-04-27] MEDS: Sodium Chloride 0.9% 50 ML ONE (17:10)
[2024-04-27] MEDS: Loperamide 2 MG Cap PO PRN (19:11)
[2024-04-27] MEDS: Budesonide 0.5 MG/2 ML Neb Susp NEB SCH (20:33)
[2024-04-27] MEDS ORDERED: Budesonide 0.5 MG/2 ML Neb Susp SCH (21:00)
[2024-04-27] MEDS ORDERED: Gabapentin 300 MG Cap PO SCH (21:00)
[2024-04-27] MEDS: Gabapentin 100 MG Cap PO SCH (21:16)
[2024-04-27] MEDS: Rosuvastatin 10 MG Tab PO SCH (21:16)
[2024-04-27] MEDS: Sulindac 200 MG Tab PO SCH (21:16)
[2024-04-27] MEDS: guaiFENesin/Dextromethorphan 100-10 MG/5 ML Soln 5 ML Cup PO SCH (21:16)
[2024-04-27] MEDS: Acetaminophen 325 MG Tab PO PRN (21:35)
[2024-04-27] MEDS: LORazepam 1 MG Tab PO SCH (22:56)
[2024-04-28 06:31] LABS: BASOPHILS PERCENT AUTO 0.3 % (0.0-1.0); EOSINOPHILS PERCENT AUTO 0.1 % (0.0-6.0); HEMATOCRIT 28.4 % (37.0-47.0); HEMOGLOBIN 8.8 gm/dl (12.0-16.0); IMMATURE GRAN ABSOLUTE AUTO 0.15 K/mm3 (0.00-0.05); IMMATURE GRAN PERCENT AUTO 2.2 % (0.0-0.4); LYMPHOCYTES ABSOLUTE AUTO 1.1 K/mm3 (1.0-4.8); LYMPHOCYTES PERCENT AUTO 15.5 % (24.0-44.0); MEAN CORPUSCULAR HEMOGLOBIN 27.8 pg (28.0-32.0); MEAN CORPUSCULAR VOLUME 89.9 fl (83.0-99.0); MONOCYTES ABSOLUTE AUTO 1.3 K/mm3 (0.0-0.8); MONOCYTES PERCENT AUTO 18.2 % (0.0-8.0); NEUTROPHILS ABSOLUTE AUTO 4.4 K/mm3 (1.8-7.7); NEUTROPHILS PERCENT AUTO 63.7 % (41.0-71.0); NRBC ABSOLUTE 0.05 (0.00-0.02); NRBC PERCENT 0.7 % (0.0-0.2); PLATELET COUNT,PLT 198 K/mm3 (150-400); RED BLOOD CELL COUNT 3.16 M/mm3 (4.10-5.30); WHITE BLOOD CELL COUNT,WBC 6.91 K/mm3 (3.9-11.3)
[2024-04-28] MEDS: Pantoprazole 40 MG Tab.CR PO SCH (06:36)
[2024-04-28 07:14] LABS: A/G RATIO 0.9 (1-2); ALBUMIN 2.9 g/dl (3.4-5.0); ANION GAP 11.1 (5-15); BILIRUBIN TOTAL 0.7 mg/dL (0.2-1.0); C-REACTIVE PROTEIN 10.75 mg/dL (<0.30); CALCIUM 8.9 mg/dL (8.5-10.1); EST CRCL DRUG DOSING (CG) 40.29 mL/min; MAGNESIUM 2.1 mg/dL (1.8-2.4); POTASSIUM,K 4.1 mEq/L (3.5-5.1); PROTEIN TOTAL,TP 6.2 g/dl (6.4-8.2)
[2024-04-28] MEDS: buPROPion 100 MG Tab.SR PO SCH (08:22)
[2024-04-28] MEDS: Sertraline 50 MG Tab PO SCH (08:22)
[2024-04-28] MEDS: Furosemide 40 MG Tab PO SCH (08:24)
[2024-04-28] MEDS: Atenolol 25 MG Tab PO SCH (08:24)
[2024-04-28] MEDS: Dexamethasone 6 MG TABLET PO SCH (08:26)
[2024-04-28] MEDS ORDERED: Non-Formulary Medication 1 Each (Sertraline 100 MG Tablet) PO SCH (09:00)
[2024-04-28] MEDS: REMDESIVIR 100 MG in Sodium Chloride 0.9% 250 ML IV SCH (15:54)
[2024-04-28] MEDS ORDERED: LORazepam 1 MG Tab PO SCH (21:00)
[2024-04-29 06:36] LABS: BASOPHILS PERCENT AUTO 0.3 % (0.0-1.0); EOSINOPHILS PERCENT AUTO 0.1 % (0.0-6.0); HEMATOCRIT 28.8 % (37.0-47.0); HEMOGLOBIN 9.1 gm/dl (12.0-16.0); IMMATURE GRAN ABSOLUTE AUTO 0.31 K/mm3 (0.00-0.05); IMMATURE GRAN PERCENT AUTO 2.9 % (0.0-0.4); LYMPHOCYTES ABSOLUTE AUTO 2.2 K/mm3 (1.0-4.8); LYMPHOCYTES PERCENT AUTO 20.8 % (24.0-44.0); MEAN CORPUSCULAR HEMOGLOBIN 28.4 pg (28.0-32.0); MEAN CORPUSCULAR HGB CONC 31.6 g/dl (32.0-36.0); MEAN PLATELET VOLUME 11.5 fl (9.4-12.3); MONOCYTES ABSOLUTE AUTO 1.9 K/mm3 (0.0-0.8); MONOCYTES PERCENT AUTO 18.3 % (0.0-8.0); NEUTROPHILS ABSOLUTE AUTO 6.1 K/mm3 (1.8-7.7); NEUTROPHILS PERCENT AUTO 57.6 % (41.0-71.0); NRBC ABSOLUTE 0.04 (0.00-0.02); NRBC PERCENT 0.4 % (0.0-0.2); PLATELET COUNT,PLT 216 K/mm3 (150-400); WHITE BLOOD CELL COUNT,WBC 10.53 K/mm3 (3.9-11.3)
[2024-04-29 07:05] LABS: A/G RATIO 0.9 (1-2); ANION GAP 11.7 (5-15); BILIRUBIN TOTAL 0.6 mg/dL (0.2-1.0); BUN/CREATININE RATIO 23.3 (14-18); C-REACTIVE PROTEIN 4.75 mg/dL (<0.30); CALCIUM 8.4 mg/dL (8.5-10.1); CREATININE 1.2 mg/dL (0.55-1.02); EST CRCL DRUG DOSING (CG) 33.57 mL/min; MAGNESIUM 2.1 mg/dL (1.8-2.4); POTASSIUM,K 3.7 mEq/L (3.5-5.1); PROTEIN TOTAL,TP 6.2 g/dl (6.4-8.2)
[2024-04-29 07:14] LABS: SLIDE REVIEW ABNORMAL SMEAR
[2024-04-29] MEDS: Formoterol/Mometasone 200-5 MCG 8.8 GM Inhaler INH SCH (20:42)
[2024-04-30] MEDS: Brimonidine 0.2% Ophth Soln 15 ML Bottle EYEBOTH SCH (00:30)
[2024-04-30 05:43] LABS: BASOPHILS ABSOLUTE AUTO 0.1 K/mm3 (0.0-0.2); BASOPHILS PERCENT AUTO 0.4 % (0.0-1.0); EOSINOPHILS PERCENT AUTO 0.1 % (0.0-6.0); HEMATOCRIT 28.6 % (37.0-47.0); IMMATURE GRAN ABSOLUTE AUTO 0.57 K/mm3 (0.00-0.05); IMMATURE GRAN PERCENT AUTO 4.9 % (0.0-0.4); LYMPHOCYTES ABSOLUTE AUTO 3.5 K/mm3 (1.0-4.8); LYMPHOCYTES PERCENT AUTO 30.3 % (24.0-44.0); MEAN CORPUSCULAR HEMOGLOBIN 27.8 pg (28.0-32.0); MEAN CORPUSCULAR HGB CONC 31.5 g/dl (32.0-36.0); MEAN CORPUSCULAR VOLUME 88.3 fl (83.0-99.0); MEAN PLATELET VOLUME 12.2 fl (9.4-12.3); MONOCYTES ABSOLUTE AUTO 1.9 K/mm3 (0.0-0.8); NEUTROPHILS ABSOLUTE AUTO 5.6 K/mm3 (1.8-7.7); NEUTROPHILS PERCENT AUTO 48.3 % (41.0-71.0); NRBC ABSOLUTE 0.05 (0.00-0.02); NRBC PERCENT 0.4 % (0.0-0.2); PLATELET COUNT,PLT 240 K/mm3 (150-400); RED BLOOD CELL COUNT 3.24 M/mm3 (4.10-5.30); WHITE BLOOD CELL COUNT,WBC 11.68 K/mm3 (3.9-11.3)
[2024-04-30 05:46] LABS: ANION GAP 11.4 (5-15); BILIRUBIN TOTAL 0.5 mg/dL (0.2-1.0); BUN/CREATININE RATIO 23.3 (14-18); CALCIUM 8.2 mg/dL (8.5-10.1); CREATININE 1.2 mg/dL (0.55-1.02); EST CRCL DRUG DOSING (CG) 33.57 mL/min; MAGNESIUM 2.1 mg/dL (1.8-2.4); POTASSIUM,K 3.4 mEq/L (3.5-5.1); PROTEIN TOTAL,TP 5.9 g/dl (6.4-8.2)
[2024-04-30 06:12] LABS: SLIDE REVIEW ABNORMAL SMEAR
[2024-04-30] MEDS: Furosemide 20 MG Tab PO SCH (08:03)
[2024-04-30] MEDS: Tiotropium BR/Olodaterol HCL 4 GM Inhalation Spray 2.5mcg/1 dose; 10 doses INH SCH (08:59)
[2024-04-30] MEDS: Potassium Chloride 20 MEQ Tab.ER PO ONE (12:06)
== END 2024-04-30 12:31 | disposition home health service (06) | DRG 177 ==
LOC: JD.ED 09:59 → JD.MS 14:58
PROVIDERS: ADMIT Student in an Organized Health Care Education/Training Program; ATTEND Student in an Organized Health Care Education/Training Program
PROC: 4A033R1 Measurement of Arterial Saturation, Peripheral, Percutaneous Approach (ICD-10-PCS; principal; 2024-04-27)
PROC: XW033E5 Introduction of Remdesivir Anti-infective into Peripheral Vein, Percutaneous Approach, New Technology Group 5 (ICD-10-PCS; 2024-04-27)
PROC: 3E0333Z Introduction of Anti-inflammatory into Peripheral Vein, Percutaneous Approach (ICD-10-PCS; 2024-04-28)
DX: U07.1 COVID-19 (principal); J96.21 Acute and chronic respiratory failure with hypoxia; I10 Essential (primary) hypertension; J96.22 Acute and chronic respiratory failure with hypercapnia; E66.9 Obesity, unspecified; J44.1 Chronic obstructive pulmonary disease with (acute) exacerbation; Z86.16 Personal history of COVID-19; Z68.43 Body mass index [BMI] 50.0-59.9, adult; I50.42 Chronic combined systolic (congestive) and diastolic (congestive) heart failure; I13.0 Hypertensive heart and chronic kidney disease with heart failure and stage 1 through stage 4 chronic kidney disease, or unspecified chronic kidney disease; H54.7 Unspecified visual loss; E78.00 Pure hypercholesterolemia, unspecified; K21.9 Gastro-esophageal reflux disease without esophagitis; K52.9 Noninfective gastroenteritis and colitis, unspecified; M19.90 Unspecified osteoarthritis, unspecified site; G43.909 Migraine, unspecified, not intractable, without status migrainosus; F41.9 Anxiety disorder, unspecified; F32.89 Other specified depressive episodes; E66.01 Morbid (severe) obesity due to excess calories; N18.31 Chronic kidney disease, stage 3a; Z99.81 Dependence on supplemental oxygen; Z79.51 Long term (current) use of inhaled steroids; Z79.899 Other long term (current) drug therapy; Z98.891 History of uterine scar from previous surgery; Z87.891 Personal history of nicotine dependence
CPT/HCPCS: 36415; 36600; 71045; 80053; 82803; 83735; 83880; 84484; 85025; 87428; 93005; 94640 ×4; 96374; 99285; J2919; 86140; 93010; 94667; 94668; 94760; 94761; 97110-GP; 97161-GP; 97530-GP; A9270-GY; J0248; J1650; J3490; J7050; J7620-GY; J8540

== ENCOUNTER 2024-06-09 10:35 | Inpatient (IN) | payer MEDICARE, OTHER ==
[2024-06-09] MEDS ORDERED: cefTRIAXone 500 MG Vial IVPUSH ONE (10:38)
[2024-06-09] MEDS: methylPREDNISolone Sodium Succinate 125 MG/2 ML SDV IVPUSH ONE (10:54)
[2024-06-09] MEDS: Doxycycline 100 MG in Sodium Chloride 0.9% 100 ML IV ONE (11:00)
[2024-06-09] MEDS: cefTRIAXone 1 GM Vial IVPUSH ONE (11:00)
[2024-06-09 11:03] LABS: BICARBONATE,ARTERIAL 28.9 meq/L (22.0-26.0); O2 SATURATION ARTERIAL 90.3 % (96.0-97.0); PCO2 ARTERIAL 54.2 mmHg (35.0-45.0)
[2024-06-09] MEDS: Albuterol/Ipratropium 3.0-0.5 MG/3 ML Neb Soln NEB ONE (11:07)
[2024-06-09 11:20] LABS: BASOPHILS PERCENT AUTO 0.3 % (0.0-1.0); EOSINOPHILS PERCENT AUTO 0.1 % (0.0-6.0); HEMATOCRIT 34.3 % (37.0-47.0); HEMOGLOBIN 10.3 gm/dl (12.0-16.0); IMMATURE GRAN ABSOLUTE AUTO 0.05 K/mm3 (0.00-0.05); IMMATURE GRAN PERCENT AUTO 0.6 % (0.0-0.4); LYMPHOCYTES ABSOLUTE AUTO 2.1 K/mm3 (1.0-4.8); LYMPHOCYTES PERCENT AUTO 23.1 % (24.0-44.0); MEAN CORPUSCULAR HEMOGLOBIN 28.1 pg (28.0-32.0); MEAN CORPUSCULAR VOLUME 93.5 fl (83.0-99.0); MONOCYTES ABSOLUTE AUTO 1.5 K/mm3 (0.0-0.8); MONOCYTES PERCENT AUTO 16.6 % (0.0-8.0); NEUTROPHILS ABSOLUTE AUTO 5.3 K/mm3 (1.8-7.7); NEUTROPHILS PERCENT AUTO 59.3 % (41.0-71.0); PLATELET COUNT,PLT 186 K/mm3 (150-400); RED BLOOD CELL COUNT 3.67 M/mm3 (4.10-5.30); WHITE BLOOD CELL COUNT,WBC 8.96 K/mm3 (3.9-11.3)
[2024-06-09 11:43] LABS: PROTHROMBIN TIME 10.6 SECONDS (9.7-12.0)
[2024-06-09 11:57] LABS: A/G RATIO 1.1 (1-2); ALANINE AMINOTRANSFERASE,ALT 26 U/L (14-59); ALBUMIN 3.5 g/dl (3.4-5.0); ALKALINE PHOSPHATASE 85 U/L (46-116); ANION GAP 12.8 (5-15); ASPARTATE AMNIOTRANSFERASE,AST 25 U/L (15-37); BILIRUBIN TOTAL 0.6 mg/dL (0.2-1.0); BLOOD UREA NITROGEN,BUN 16 mg/dL (7-18); BUN/CREATININE RATIO 13.3 (14-18); CALCIUM 8.3 mg/dL (8.5-10.1); CARBON DIOXIDE,CO2 32 mEq/L (21-32); CHLORIDE,CL 104 mEq/L (98-107); CREATINE KINASE,CK 129 U/L (26-192); CREATININE 1.2 mg/dL (0.55-1.02); ESTIMATED GFR 50 mL/min (>60); GLUCOSE RANDOM 101 mg/dL (70-99); POTASSIUM,K 3.8 mEq/L (3.5-5.1); PROTEIN TOTAL,TP 6.6 g/dl (6.4-8.2); SODIUM,NA 145 mEq/L (136-145)
[2024-06-09 12:15] LABS: CORONAVIRUS COVID-19 NAA NEGATIVE (NEGATIVE); INFLUENZA A NAA POSITIVE (NEGATIVE); RESPIRATORY SYNCYTIAL VIR NAA NEGATIVE (NEGATIVE)
[2024-06-09 12:16] LABS: BASE EXCESS ARTERIAL 2.7 (-2-2.0); BICARBONATE,ARTERIAL 28.6 meq/L (22.0-26.0); O2 SATURATION ARTERIAL 92.7 % (96.0-97.0); PCO2 ARTERIAL 53.5 mmHg (35.0-45.0)
[2024-06-09] MEDS ORDERED: Albuterol 0.083% 2.5 MG/3 ML Neb Soln NEB PRN (14:57)
[2024-06-09] MEDS ORDERED: Polyethylene Glycol 3350 Powder 17 GM Packet PO PRN (14:57)
[2024-06-09] MEDS ORDERED: Ondansetron 4 MG/2 ML SDV IV PRN (14:57)
[2024-06-09] MEDS ORDERED: Docusate Sodium 100 MG Cap PO PRN (14:57)
[2024-06-09] MEDS ORDERED: Oseltamivir 75 MG Cap PO SCH (15:00)
[2024-06-09] MEDS: Albuterol/Ipratropium 3.0-0.5 MG/3 ML Neb Soln NEB SCH ×2 (15:22→15:47)
[2024-06-09] MEDS: Acetaminophen 325 MG Tab PO PRN (16:01)
[2024-06-09] MEDS: Oseltamivir 75 MG Cap PO ONE (16:01)
[2024-06-09 18:48] LABS: BARBITURATE SCREEN,URINE NEGATIVE (CUTOFF=200); BENZODIAZEPINES SCREEN,URINE PRESUMPTIVE POSITIVE (CUTOFF=150); BUPRENORPHINE SCREEN,URINE NEGATIVE (CUTOFF=10); METHADONE SCREEN, URINE NEGATIVE (CUTOFF=200); METHAMPHETAMINES SCREEN, URINE NEGATIVE (CUTOFF=500); OXYCODONE SCREEN,URINE NEGATIVE (CUT0FF=100); THC SCREEN,URINE 20 NG/ML NEGATIVE (CUTOFF=50)
[2024-06-09] MEDS: Cefepime 2 GM in Sodium Chloride 0.9% 50 ML IV SCH (18:49)
[2024-06-09 18:50] LABS: AMPHETAMINES SCREEN, URINE NEGATIVE (CUTOFF=500)
[2024-06-09] MEDS: methylPREDNISolone Sodium Succinate 40 MG/1 ML SDV IVPUSH SCH (19:50)
[2024-06-09] MEDS: guaiFENesin/Dextromethorphan 100-10 MG/5 ML Soln 5 ML Cup PO SCH (19:52)
[2024-06-09] MEDS: Gabapentin 600 MG Tab PO SCH (19:53)
[2024-06-09] MEDS: Furosemide 40 MG Tab PO SCH (19:54)
[2024-06-09] MEDS: Rosuvastatin 10 MG Tab PO SCH (19:54)
[2024-06-09] MEDS: Albuterol 0.083% 2.5 MG/3 ML Neb Soln NEB PRN (20:37)
[2024-06-09] MEDS ORDERED: Non-Formulary Medication 1 Each (Diclofenac Sodium 75 MG Tablet.Dr) PO SCH (21:00)
[2024-06-09] MEDS: Fluticasone NASAL Spray 16 GM Bottle NASBOTH SCH (21:04)
[2024-06-09] MEDS: Brimonidine 0.2% Ophth Soln 5 ML Bottle EYEBOTH SCH (21:04)
[2024-06-09] MEDS: Oseltamivir 30 MG Cap PO SCH (22:24)
[2024-06-09] MEDS: LORazepam 1 MG Tab PO SCH (22:29)
[2024-06-09] MEDS: Verapamil 80 MG Tab PO SCH (23:59)
[2024-06-10] MEDS: Furosemide 40 MG Tab PO SCH (04:55)
[2024-06-10 05:33] LABS: BASOPHILS PERCENT AUTO 0.2 % (0.0-1.0); HEMATOCRIT 34.5 % (37.0-47.0); HEMOGLOBIN 10.4 gm/dl (12.0-16.0); IMMATURE GRAN ABSOLUTE AUTO 0.04 K/mm3 (0.00-0.05); IMMATURE GRAN PERCENT AUTO 0.6 % (0.0-0.4); LYMPHOCYTES ABSOLUTE AUTO 0.9 K/mm3 (1.0-4.8); LYMPHOCYTES PERCENT AUTO 13.8 % (24.0-44.0); MEAN CORPUSCULAR HEMOGLOBIN 27.9 pg (28.0-32.0); MEAN CORPUSCULAR HGB CONC 30.1 g/dl (32.0-36.0); MEAN CORPUSCULAR VOLUME 92.5 fl (83.0-99.0); MEAN PLATELET VOLUME 12.5 fl (9.4-12.3); MONOCYTES ABSOLUTE AUTO 0.7 K/mm3 (0.0-0.8); MONOCYTES PERCENT AUTO 10.7 % (0.0-8.0); NEUTROPHILS ABSOLUTE AUTO 4.8 K/mm3 (1.8-7.7); NEUTROPHILS PERCENT AUTO 74.7 % (41.0-71.0); PLATELET COUNT,PLT 193 K/mm3 (150-400); RED BLOOD CELL COUNT 3.73 M/mm3 (4.10-5.30); WHITE BLOOD CELL COUNT,WBC 6.46 K/mm3 (3.9-11.3)
[2024-06-10 05:55] LABS: ALBUMIN 3.5 g/dl (3.4-5.0); ANION GAP 13.8 (5-15); BILIRUBIN TOTAL 0.5 mg/dL (0.2-1.0); BUN/CREATININE RATIO 16.7 (14-18); CALCIUM 8.3 mg/dL (8.5-10.1); CREATININE 1.2 mg/dL (0.55-1.02); EST CRCL DRUG DOSING (CG) 33.57 mL/min; MAGNESIUM 2.1 mg/dL (1.8-2.4); POTASSIUM,K 3.8 mEq/L (3.5-5.1); PROTEIN TOTAL,TP 6.9 g/dl (6.4-8.2)
[2024-06-10] MEDS: Sertraline 50 MG Tab PO SCH (08:43)
[2024-06-10] MEDS: buPROPion 100 MG Tab.SR PO SCH (08:43)
[2024-06-10] MEDS: Loperamide 2 MG Cap PO PRN (08:43)
[2024-06-10] MEDS: Enoxaparin 40 MG/0.4 ML Syringe SUBCUT SCH (08:44)
[2024-06-10] MEDS: Atenolol 25 MG Tab PO SCH (08:49)
[2024-06-10] MEDS: Tiotropium BR/Olodaterol HCL 4 GM Inhalation Spray 2.5mcg/1 dose; 10 doses INH SCH (09:13)
[2024-06-10] MEDS: Albuterol/Ipratropium 3.0-0.5 MG/3 ML Neb Soln NEB SCH (15:11)
[2024-06-10] MEDS: Cefepime 2 GM Vial IV SCH (17:19)
[2024-06-11 05:43] LABS: BASOPHILS PERCENT AUTO 0.2 % (0.0-1.0); HEMATOCRIT 33.4 % (37.0-47.0); HEMOGLOBIN 10.4 gm/dl (12.0-16.0); IMMATURE GRAN ABSOLUTE AUTO 0.07 K/mm3 (0.00-0.05); IMMATURE GRAN PERCENT AUTO 1.4 % (0.0-0.4); LYMPHOCYTES PERCENT AUTO 20.4 % (24.0-44.0); MEAN CORPUSCULAR HEMOGLOBIN 28.1 pg (28.0-32.0); MEAN CORPUSCULAR HGB CONC 31.1 g/dl (32.0-36.0); MEAN CORPUSCULAR VOLUME 90.3 fl (83.0-99.0); MEAN PLATELET VOLUME 12.9 fl (9.4-12.3); MONOCYTES ABSOLUTE AUTO 0.7 K/mm3 (0.0-0.8); MONOCYTES PERCENT AUTO 13.5 % (0.0-8.0); NEUTROPHILS ABSOLUTE AUTO 3.3 K/mm3 (1.8-7.7); NEUTROPHILS PERCENT AUTO 64.5 % (41.0-71.0); PLATELET COUNT,PLT 202 K/mm3 (150-400); WHITE BLOOD CELL COUNT,WBC 5.11 K/mm3 (3.9-11.3)
[2024-06-11 05:50] LABS: ALBUMIN 3.4 g/dl (3.4-5.0); ANION GAP 13.7 (5-15); BILIRUBIN TOTAL 0.5 mg/dL (0.2-1.0); CALCIUM 8.5 mg/dL (8.5-10.1); CREATININE 1.2 mg/dL (0.55-1.02); EST CRCL DRUG DOSING (CG) 33.57 mL/min; MAGNESIUM 2.2 mg/dL (1.8-2.4); POTASSIUM,K 3.7 mEq/L (3.5-5.1); PROTEIN TOTAL,TP 6.8 g/dl (6.4-8.2)
[2024-06-11] MEDS: predniSONE 20 MG Tab PO SCH (06:37)
[2024-06-11] MEDS ORDERED: Lisinopril 20 MG Tab PO SCH (10:49)
[2024-06-11] MEDS: Lisinopril 20 MG Tab PO SCH ×2 (11:00→11:10)
[2024-06-11] MEDS: Potassium Chloride 20 MEQ Tab.ER PO ONE (11:12)
== END 2024-06-11 13:22 | disposition home or self-care (01) | DRG 193 ==
LOC: JD.ED 10:35 → JD.MS 13:23
PROVIDERS: ADMIT Family Medicine; ATTEND Student in an Organized Health Care Education/Training Program
PROC: 4A133R1 Monitoring of Arterial Saturation, Peripheral, Percutaneous Approach (ICD-10-PCS; principal; 2024-06-09)
DX: J96.01 Acute respiratory failure with hypoxia (principal); J96.02 Acute respiratory failure with hypercapnia; J10.08 Influenza due to other identified influenza virus with other specified pneumonia; J10.1 Influenza due to other identified influenza virus with other respiratory manifestations; J96.21 Acute and chronic respiratory failure with hypoxia; N28.9 Disorder of kidney and ureter, unspecified; Z79.52 Long term (current) use of systemic steroids; J96.22 Acute and chronic respiratory failure with hypercapnia; I11.0 Hypertensive heart disease with heart failure; I13.0 Hypertensive heart and chronic kidney disease with heart failure and stage 1 through stage 4 chronic kidney disease, or unspecified chronic kidney disease; Z68.42 Body mass index [BMI] 45.0-49.9, adult; E66.9 Obesity, unspecified; I50.42 Chronic combined systolic (congestive) and diastolic (congestive) heart failure; J15.4 Pneumonia due to other streptococci; Z66 Do not resuscitate; J44.0 Chronic obstructive pulmonary disease with (acute) lower respiratory infection; J44.1 Chronic obstructive pulmonary disease with (acute) exacerbation; K21.9 Gastro-esophageal reflux disease without esophagitis; F32.A Depression, unspecified; G43.909 Migraine, unspecified, not intractable, without status migrainosus; F41.9 Anxiety disorder, unspecified; K52.9 Noninfective gastroenteritis and colitis, unspecified; R79.89 Other specified abnormal findings of blood chemistry; E66.813 Obesity, class 3; E78.00 Pure hypercholesterolemia, unspecified; M19.90 Unspecified osteoarthritis, unspecified site; N18.31 Chronic kidney disease, stage 3a; D50.8 Other iron deficiency anemias; Z79.1 Long term (current) use of non-steroidal anti-inflammatories (NSAID); Z79.899 Other long term (current) drug therapy; Z99.81 Dependence on supplemental oxygen; Z87.891 Personal history of nicotine dependence; Z79.02 Long term (current) use of antithrombotics/antiplatelets; Z87.01 Personal history of pneumonia (recurrent); Z86.16 Personal history of COVID-19; Z98.891 History of uterine scar from previous surgery
CPT/HCPCS: 0241U; 36415; 36600; 71045; 80053; 80306; 82550; 82803; 83735; 83880; 84484; 85025; 85379; 85610; 87070; 87077; 87186; 87205; 87428; 87899; 93005; 94640; 94667; 94668; 94761; 96365; 96375; 97110; 97161; 97530; 99285; A9270-GY; J0692; J0696; J1650; J2919; J3490; J7512; J7620-GY

== ENCOUNTER 2024-08-07 09:05 | Emergency (ER) | payer MEDICARE, OTHER ==
[2024-08-07] MEDS: Acetaminophen/HYDROcodone 325-5 MG Tab PO ONE (10:37)
== END 2024-08-07 10:44 | disposition home or self-care (01) ==
LOC: JD.ED 09:05
DX: M17.11 Unilateral primary osteoarthritis, right knee (principal); I11.0 Hypertensive heart disease with heart failure; I50.9 Heart failure, unspecified; E78.00 Pure hypercholesterolemia, unspecified; J44.9 Chronic obstructive pulmonary disease, unspecified; E66.9 Obesity, unspecified; Z68.42 Body mass index [BMI] 45.0-49.9, adult; Z86.16 Personal history of COVID-19; Z87.891 Personal history of nicotine dependence; Z79.899 Other long term (current) drug therapy
CPT/HCPCS: 99283; A9270